=== PATIENT | female | born 1945 | race Caucasian/White ===

== ENCOUNTER 2018-10-21 07:24 | Inpatient (IN) | payer MEDICARE, OTHER ==
[~2018-10-21] VITALS: Ht 162.6 cm; Wt 87.0 kg
[2018-10-21 08:39] LABS: BASOPHILS % (AUTO) 0.1 % (0-1); EOSINOPHILS # (AUTO) 0.2 X10'3 (0-0.9); EOSINOPHILS % (AUTO) 2.2 % (0-6); HEMATOCRIT 40.9 % (35.0-45.0); HEMOGLOBIN 13.6 g/dl (12.0-16.0); LYMPHOCYTES # (AUTO) 0.7 X10'3 (1.1-4.8); LYMPHOCYTES % (AUTO) 6.2 % (21-51); MEAN CORPUSCULAR HEMOGLOBIN 29.8 PG (27.0-31.0); MEAN CORPUSCULAR HGB CONC 33.2 % (33.0-36.5); MEAN CORPUSCULAR VOLUME 89.8 FL (78-98); MEAN PLATELET VOLUME 8.3 FL (7.4-10.4); MONOCYTES # (AUTO) 0.7 X10'3 (0-0.9); MONOCYTES % (AUTO) 6.7 % (2-12); NEUTROPHILS % (AUTO) 84.8 % (42-75); PLATELET COUNT 337 X10'3 (140-440); RED BLOOD COUNT 4.56 X10'6 (4.20-5.60); WHITE BLOOD COUNT 10.7 X10'3 (4.5-11.0)
[2018-10-21 08:51] LABS: INR 1.2 INR; PARTIAL THROMBOPLASTIN TIME 31 SECONDS (22-32); PROTHROMBIN TIME 11.6 SECONDS (9.0-12.0)
[2018-10-21] MEDS ORDERED: adenosine 3mg/ml 2ml vial IV ONE (09:00)
[2018-10-21] MEDS ORDERED: sodium bicarbonate (8.4%) 1 mEq/ml syringe ONE (09:00)
[2018-10-21] MEDS ORDERED: atropine 0.1mg/ml 10ml syringe ONE (09:00)
[2018-10-21] MEDS ORDERED: ePHEDrine 50MG/ML INJ. ONE ×2 (09:00)
[2018-10-21] MEDS ORDERED: 0.9 % SODIUM CHLORIDE 10 ML VIAL ONE ×3 (09:00)
[2018-10-21] MEDS ORDERED: etomidate 2mg/ml inj. ONE (09:00)
[2018-10-21] MEDS ORDERED: calcium chloride 100 MG/1 ML inj IV ONE (09:00)
[2018-10-21 09:09] LABS: ALANINE AMINOTRANSFERASE 11 U/L (12-78); ALBUMIN 1.9 G/DL (3.4-5.0); ALBUMIN/GLOBULIN RATIO 0.4 (1.1-1.5); ALKALINE PHOSPHATASE 199 IU/L (46-116); ANION GAP 12 (8-16); ASPARTATE AMINO TRANSFERASE 22 U/L (10-37); BILIRUBIN,TOTAL 0.3 MG/DL (0.1-1.0); BLOOD UREA NITROGEN 80 MG/DL (7-18); BUN/CREATININE RATIO 34.2 (6.6-38.0); CALCIUM 7.9 MG/DL (8.5-10.1); CHLORIDE 102 MMOL/L (99-107); CREATININE 2.34 MG/DL (0.40-0.90); GLUCOSE 238 MG/DL (70-104); POTASSIUM 4.4 MMOL/L (3.5-5.1); SODIUM 135 MMOL/L (135-145); TOTAL CARBON DIOXIDE 20.8 MMOL/L (24-32); TOTAL PROTEIN 6.3 G/DL (6.4-8.2); eGFR 20 ML/MIN
[2018-10-21] MEDS ORDERED: normal saline 1000ML IV soln IVB ONE (09:20)
[2018-10-21] MEDS ORDERED: PRAV80TA3 PO (09:23)
[2018-10-21] MEDS ORDERED: WARF-55 PO (09:23)
[2018-10-21] MEDS ORDERED: METO25TA6 PO (09:23)
[2018-10-21] MEDS ORDERED: EZET10TA13 PO (09:29)
[2018-10-21] MEDS ORDERED: GLIP5TAB26 PO (09:29)
[2018-10-21] MEDS ORDERED: FURO80TA3 PO (09:29)
[2018-10-21] MEDS ORDERED: AMLO2.5T2 PO (09:29)
[2018-10-21] MEDS ORDERED: COU4T PO (09:29)
[2018-10-21] MEDS ORDERED: MAGN400C PO (09:29)
[2018-10-21] MEDS ORDERED: LANTUS SQ (09:29)
[2018-10-21] MEDS ORDERED: CLOP75TA15 PO (09:30)
[2018-10-21] MEDS ORDERED: morphine 4 MG/ML inj SYRINge IV ONE (09:30)
[2018-10-21] MEDS ORDERED: LISI-600 PO (09:30)
[2018-10-21] MEDS ORDERED: mag hydrox/Alum hydrox/simeth 30ml oral suspension PO PRN (10:25)
[2018-10-21] MEDS ORDERED: magnesium 1gm/100ml D5W IVPB 100 ML IV PRN (10:25)
[2018-10-21] MEDS ORDERED: potassium Cl 40MEQ/NS 500ml 500 ML IV PRN ×2 (10:25)
[2018-10-21] MEDS ORDERED: heparin 10,000 units/1 ML INJ IV ONE (10:25)
[2018-10-21] MEDS ORDERED: potassium Cl 20 mEq SR tablet PO PRN ×2 (10:25)
[2018-10-21] MEDS ORDERED: acetaminophen 325mg tablet PO PRN ×2 (10:25)
[2018-10-21] MEDS ORDERED: morphine 2 MG/ML inj. syringe IV PRN (10:25)
[2018-10-21] MEDS ORDERED: ondansetron/PF 4mg/2ml inj IV PRN (10:25)
[2018-10-21] MEDS ORDERED: magnesium 4gm in 100ml NS 100 ML IV PRN (10:25)
[2018-10-21] MEDS ORDERED: magnesium hydroxide 30ml (MOM) UD suspension PO PRN (10:25)
[2018-10-21] MEDS ORDERED: magnesium Cl slow-release 64mg tablet PO PRN (10:25)
[2018-10-21] MEDS: normal saline 1000ml 1,000 ML IV SCH (11:09)
[2018-10-21] MEDS: heparin 25,000 UNIT/250ml bag 250 ML IV SCH ×2 (13:04→18:00)
[2018-10-21 13:42] LABS: BASOPHILS % (AUTO) 0.1 % (0-1); EOSINOPHILS # (AUTO) 0.3 X10'3 (0-0.9); EOSINOPHILS % (AUTO) 4.1 % (0-6); HEMOGLOBIN 12.5 g/dl (12.0-16.0); LYMPHOCYTES # (AUTO) 0.3 X10'3 (1.1-4.8); LYMPHOCYTES % (AUTO) 4.7 % (21-51); MEAN CORPUSCULAR HEMOGLOBIN 29.5 PG (27.0-31.0); MEAN CORPUSCULAR HGB CONC 32.9 % (33.0-36.5); MEAN CORPUSCULAR VOLUME 89.5 FL (78-98); MEAN PLATELET VOLUME 8.2 FL (7.4-10.4); MONOCYTES # (AUTO) 0.6 X10'3 (0-0.9); MONOCYTES % (AUTO) 7.6 % (2-12); NEUTROPHILS # (AUTO) 6.2 X10'3 (1.8-7.7); NEUTROPHILS % (AUTO) 83.5 % (42-75); PLATELET COUNT 297 X10'3 (140-440); RED BLOOD COUNT 4.24 X10'6 (4.20-5.60); RED CELL DISTRIBUTION WIDTH 13.3 % (11.5-14.5); WHITE BLOOD COUNT 7.4 X10'3 (4.5-11.0)
[2018-10-21 16:32] LABS: HEMOGLOBIN A1C 6.6 % (4.5-6.2)
[2018-10-21 17:06] VITALS: BP 107/41
[2018-10-21] MEDS: heparin 10,000 units/1 ML INJ IV PRN (17:57)
[2018-10-21 19:00] VITALS: BP 103/39
[2018-10-21] MEDS ORDERED: temazepam 15mg capsule PO PRN (21:00)
[2018-10-21] MEDS: metoprolol tartrate 25mg tablet PO SCH (21:15)
[2018-10-21 23:00] VITALS: BP 105/53
[2018-10-22] MEDS: heparin 25,000 UNIT/250ml bag 250 ML IV SCH ×4 (01:58→17:18)
[2018-10-22] MEDS: normal saline 1000ml 1,000 ML IV SCH ×3 (02:27→23:02)
[2018-10-22 03:00] VITALS: BP 109/55
[2018-10-22 06:00] VITALS: BP 138/59
[2018-10-22 06:33] LABS: BASOPHILS % (AUTO) 0.6 % (0-1); EOSINOPHILS # (AUTO) 0.5 X10'3 (0-0.9); HEMATOCRIT 35.2 % (35.0-45.0); HEMOGLOBIN 11.8 g/dl (12.0-16.0); LYMPHOCYTES # (AUTO) 0.6 X10'3 (1.1-4.8); LYMPHOCYTES % (AUTO) 9.3 % (21-51); MEAN CORPUSCULAR HEMOGLOBIN 29.8 PG (27.0-31.0); MEAN CORPUSCULAR HGB CONC 33.4 % (33.0-36.5); MEAN CORPUSCULAR VOLUME 89.2 FL (78-98); MONOCYTES # (AUTO) 0.7 X10'3 (0-0.9); MONOCYTES % (AUTO) 10.7 % (2-12); NEUTROPHILS # (AUTO) 4.9 X10'3 (1.8-7.7); NEUTROPHILS % (AUTO) 72.4 % (42-75); PLATELET COUNT 253 X10'3 (140-440); RED BLOOD COUNT 3.95 X10'6 (4.20-5.60); WHITE BLOOD COUNT 6.8 X10'3 (4.5-11.0)
[2018-10-22 07:50] LABS: ALANINE AMINOTRANSFERASE 13 U/L (12-78); ALBUMIN 1.8 G/DL (3.4-5.0); ALBUMIN/GLOBULIN RATIO 0.5 (1.1-1.5); ALKALINE PHOSPHATASE 154 IU/L (46-116); ANION GAP 9 (8-16); ASPARTATE AMINO TRANSFERASE 18 U/L (10-37); BILIRUBIN,TOTAL 0.2 MG/DL (0.1-1.0); BLOOD UREA NITROGEN 83 MG/DL (7-18); BUN/CREATININE RATIO 38.8 (6.6-38.0); CALCIUM 7.9 MG/DL (8.5-10.1); CHLORIDE 105 MMOL/L (99-107); CHOL/HDL RATIO 3.6 (0.00-4.99); CHOLESTEROL 75 MG/DL (0-200); CREATININE 2.14 MG/DL (0.40-0.90); GLUCOSE 73 MG/DL (70-104); HDL CHOLESTEROL 21 MG/DL (35-60); LDL CHOLESTEROL 28 MG/DL (50-100); MAGNESIUM 2.3 MG/DL (1.5-2.4); PHOSPHORUS 4.2 MG/DL (2.3-4.5); POTASSIUM 4.1 MMOL/L (3.5-5.1); SODIUM 139 MMOL/L (135-145); TOTAL CARBON DIOXIDE 25.2 MMOL/L (24-32); TOTAL PROTEIN 5.7 G/DL (6.4-8.2); TRIGLYCERIDES 158 MG/DL (20-135); eGFR 23 ML/MIN
[2018-10-22] MEDS: K and/or MAG REPLACEMENT MC SCH (08:00)
[2018-10-22] MEDS ORDERED: PRAVASTATIN SODIUM 80 MG PO SCH (08:00)
[2018-10-22] MEDS: aspirin 81mg tab.chew PO SCH (08:08)
[2018-10-22] MEDS: clopidogrel 75mg tablet PO SCH (08:08)
[2018-10-22] MEDS: pravastatin 40mg tablet PO SCH (08:10)
[2018-10-22] MEDS: ezetimibe 10mg tablet PO SCH (08:11)
[2018-10-22] MEDS: metoprolol tartrate 25mg tablet PO SCH ×2 (08:12→20:00)
[2018-10-22] MEDS: morphine 2 MG/ML inj. syringe IV PRN (08:20)
[2018-10-22] MEDS: heparin 10,000 units/1 ML INJ IV PRN (09:39)
[2018-10-22 11:00] VITALS: BP 111/48
[2018-10-22 15:00] VITALS: BP 122/50
[2018-10-22] MEDS ORDERED: docusate sod 100mg capsule PO ONE (15:00)
[2018-10-22 19:00] VITALS: BP 123/35
[2018-10-22] MEDS: docusate sod 100mg capsule PO SCH (20:01)
[2018-10-22] MEDS ORDERED: warfarin 5mg tablet PO SCH (21:00)
[2018-10-22] MEDS ORDERED: warfarin 5mg tablet PO ONE (21:00)
[2018-10-22 23:00] VITALS: BP 113/29
[2018-10-23 02:29] LABS: BASOPHILS % (AUTO) 0.2 % (0-1); EOSINOPHILS # (AUTO) 0.3 X10'3 (0-0.9); EOSINOPHILS % (AUTO) 2.9 % (0-6); HEMATOCRIT 36.4 % (35.0-45.0); HEMOGLOBIN 12.1 g/dl (12.0-16.0); LYMPHOCYTES # (AUTO) 0.4 X10'3 (1.1-4.8); LYMPHOCYTES % (AUTO) 4.4 % (21-51); MEAN CORPUSCULAR HEMOGLOBIN 29.9 PG (27.0-31.0); MEAN CORPUSCULAR HGB CONC 33.3 % (33.0-36.5); MEAN CORPUSCULAR VOLUME 89.8 FL (78-98); MEAN PLATELET VOLUME 8.3 FL (7.4-10.4); MONOCYTES # (AUTO) 0.5 X10'3 (0-0.9); MONOCYTES % (AUTO) 5.3 % (2-12); NEUTROPHILS # (AUTO) 8.6 X10'3 (1.8-7.7); NEUTROPHILS % (AUTO) 87.2 % (42-75); PLATELET COUNT 338 X10'3 (140-440); RED BLOOD COUNT 4.05 X10'6 (4.20-5.60); RED CELL DISTRIBUTION WIDTH 13.5 % (11.5-14.5); WHITE BLOOD COUNT 9.8 X10'3 (4.5-11.0)
[2018-10-23 02:42] LABS: PROTHROMBIN TIME 10.6 SECONDS (9.0-12.0)
[2018-10-23 02:43] LABS: ALANINE AMINOTRANSFERASE 16 U/L (12-78); ALBUMIN 2.1 G/DL (3.4-5.0); ALBUMIN/GLOBULIN RATIO 0.4 (1.1-1.5); ALKALINE PHOSPHATASE 199 IU/L (46-116); ANION GAP 11 (8-16); ASPARTATE AMINO TRANSFERASE 18 U/L (10-37); BILIRUBIN,TOTAL 0.3 MG/DL (0.1-1.0); BLOOD UREA NITROGEN 73 MG/DL (7-18); BUN/CREATININE RATIO 37.1 (6.6-38.0); CALCIUM 8.4 MG/DL (8.5-10.1); CHLORIDE 104 MMOL/L (99-107); CREATININE 1.97 MG/DL (0.40-0.90); GLUCOSE 166 MG/DL (70-104); MAGNESIUM 2.5 MG/DL (1.5-2.4); PHOSPHORUS 3.8 MG/DL (2.3-4.5); POTASSIUM 4.3 MMOL/L (3.5-5.1); SODIUM 137 MMOL/L (135-145); TOTAL CARBON DIOXIDE 22.5 MMOL/L (24-32); TOTAL PROTEIN 6.8 G/DL (6.4-8.2); eGFR 25 ML/MIN
[2018-10-23 03:00] VITALS: BP 113/35
[2018-10-23 06:00] VITALS: BP 112/39
[2018-10-23] MEDS: K and/or MAG REPLACEMENT MC SCH (08:00)
[2018-10-23] MEDS: aspirin 81mg tab.chew PO SCH (08:15)
[2018-10-23] MEDS: ezetimibe 10mg tablet PO SCH (08:15)
[2018-10-23] MEDS: metoprolol tartrate 25mg tablet PO SCH ×2 (08:16→21:32)
[2018-10-23] MEDS: pravastatin 40mg tablet PO SCH (08:17)
[2018-10-23] MEDS: clopidogrel 75mg tablet PO SCH (08:17)
[2018-10-23] MEDS: docusate sod 100mg capsule PO SCH ×2 (08:17→21:32)
[2018-10-23] MEDS: morphine 2 MG/ML inj. syringe IV PRN ×2 (08:18→17:31)
[2018-10-23 11:00] VITALS: BP 122/37
[2018-10-23] MEDS: normal saline 1000ml 1,000 ML IV SCH (13:25)
[2018-10-23] MEDS: heparin 25,000 UNIT/250ml bag 250 ML IV SCH ×2 (13:59→21:24)
[2018-10-23 15:00] VITALS: BP 145/42
[2018-10-23 18:00] VITALS: BP 135/55
[2018-10-23] MEDS ORDERED: warfarin 5mg tablet PO ONE (21:00)
[2018-10-23] MEDS: heparin 10,000 units/1 ML INJ IV PRN (21:23)
[2018-10-23 22:00] VITALS: BP 157/60
[2018-10-24] MEDS: morphine 2 MG/ML inj. syringe IV PRN ×5 (00:20→23:46)
[2018-10-24 02:00] VITALS: BP 143/61
[2018-10-24 05:25] LABS: BASOPHILS # (AUTO) 0.1 X10'3 (0-0.2); BASOPHILS % (AUTO) 1.4 % (0-1); EOSINOPHILS # (AUTO) 0.5 X10'3 (0-0.9); EOSINOPHILS % (AUTO) 6.4 % (0-6); HEMATOCRIT 35.8 % (35.0-45.0); HEMOGLOBIN 11.8 g/dl (12.0-16.0); LYMPHOCYTES # (AUTO) 0.4 X10'3 (1.1-4.8); LYMPHOCYTES % (AUTO) 5.7 % (21-51); MEAN CORPUSCULAR HEMOGLOBIN 29.6 PG (27.0-31.0); MEAN CORPUSCULAR HGB CONC 32.8 % (33.0-36.5); MEAN CORPUSCULAR VOLUME 90.1 FL (78-98); MEAN PLATELET VOLUME 8.5 FL (7.4-10.4); MONOCYTES # (AUTO) 0.5 X10'3 (0-0.9); MONOCYTES % (AUTO) 7.3 % (2-12); NEUTROPHILS # (AUTO) 5.7 X10'3 (1.8-7.7); NEUTROPHILS % (AUTO) 79.2 % (42-75); PLATELET COUNT 283 X10'3 (140-440); RED BLOOD COUNT 3.98 X10'6 (4.20-5.60); RED CELL DISTRIBUTION WIDTH 13.3 % (11.5-14.5); WHITE BLOOD COUNT 7.1 X10'3 (4.5-11.0)
[2018-10-24 05:41] LABS: INR 1.2 INR; PROTHROMBIN TIME 11.9 SECONDS (9.0-12.0)
[2018-10-24 05:54] LABS: ALANINE AMINOTRANSFERASE 15 U/L (12-78); ALBUMIN 1.8 G/DL (3.4-5.0); ALBUMIN/GLOBULIN RATIO 0.5 (1.1-1.5); ALKALINE PHOSPHATASE 144 IU/L (46-116); ANION GAP 11 (8-16); ASPARTATE AMINO TRANSFERASE 14 U/L (10-37); BILIRUBIN,TOTAL 0.3 MG/DL (0.1-1.0); BLOOD UREA NITROGEN 54 MG/DL (7-18); BUN/CREATININE RATIO 34.8 (6.6-38.0); CALCIUM 8.1 MG/DL (8.5-10.1); CHLORIDE 110 MMOL/L (99-107); CREATININE 1.55 MG/DL (0.40-0.90); GLUCOSE 109 MG/DL (70-104); MAGNESIUM 2.4 MG/DL (1.5-2.4); PHOSPHORUS 2.9 MG/DL (2.3-4.5); SODIUM 142 MMOL/L (135-145); TOTAL PROTEIN 5.8 G/DL (6.4-8.2); eGFR 33 ML/MIN
[2018-10-24] MEDS: heparin 25,000 UNIT/250ml bag 250 ML IV SCH ×3 (05:55→16:30)
[2018-10-24 06:00] VITALS: BP 115/55
[2018-10-24] MEDS: ezetimibe 10mg tablet PO SCH (07:37)
[2018-10-24] MEDS: pravastatin 40mg tablet PO SCH (07:37)
[2018-10-24] MEDS: aspirin 81mg tab.chew PO SCH (07:37)
[2018-10-24] MEDS: docusate sod 100mg capsule PO SCH ×2 (07:37→20:25)
[2018-10-24] MEDS: metoprolol tartrate 25mg tablet PO SCH ×2 (07:38→20:25)
[2018-10-24] MEDS: clopidogrel 75mg tablet PO SCH (07:38)
[2018-10-24] MEDS: K and/or MAG REPLACEMENT MC SCH (08:00)
[2018-10-24] MEDS ORDERED: magnesium 2GM in 50ml NS 50 ML IV PRN (08:33)
[2018-10-24 11:00] VITALS: BP 121/48
[2018-10-24 15:00] VITALS: BP 152/61
[2018-10-24] MEDS: normal saline 1000ml 1,000 ML IV SCH (18:43)
[2018-10-24 19:00] VITALS: BP 128/48
[2018-10-24] MEDS ORDERED: warfarin 10mg tablet PO ONE (21:00)
[2018-10-24 23:00] VITALS: BP 137/50
[2018-10-25 03:00] VITALS: BP 124/50
[2018-10-25] MEDS: morphine 2 MG/ML inj. syringe IV PRN ×3 (04:39→20:38)
[2018-10-25 06:00] VITALS: BP 150/46
[2018-10-25 06:43] LABS: BASOPHILS % (AUTO) 0.6 % (0-1); EOSINOPHILS # (AUTO) 0.5 X10'3 (0-0.9); EOSINOPHILS % (AUTO) 7.8 % (0-6); HEMATOCRIT 39.5 % (35.0-45.0); HEMOGLOBIN 13.1 g/dl (12.0-16.0); LYMPHOCYTES # (AUTO) 0.4 X10'3 (1.1-4.8); MEAN CORPUSCULAR HEMOGLOBIN 29.7 PG (27.0-31.0); MEAN CORPUSCULAR VOLUME 89.9 FL (78-98); MEAN PLATELET VOLUME 7.6 FL (7.4-10.4); MONOCYTES # (AUTO) 0.6 X10'3 (0-0.9); NEUTROPHILS # (AUTO) 5.4 X10'3 (1.8-7.7); NEUTROPHILS % (AUTO) 77.6 % (42-75); PLATELET COUNT 278 X10'3 (140-440); RED CELL DISTRIBUTION WIDTH 13.7 % (11.5-14.5)
[2018-10-25 06:48] LABS: INR 1.8 INR; PROTHROMBIN TIME 17.3 SECONDS (9.0-12.0)
[2018-10-25 06:52] LABS: ALANINE AMINOTRANSFERASE 13 U/L (12-78); ALBUMIN/GLOBULIN RATIO 0.5 (1.1-1.5); ALKALINE PHOSPHATASE 147 IU/L (46-116); ANION GAP 14 (8-16); ASPARTATE AMINO TRANSFERASE 15 U/L (10-37); BILIRUBIN,TOTAL 0.2 MG/DL (0.1-1.0); BLOOD UREA NITROGEN 40 MG/DL (7-18); BUN/CREATININE RATIO 32.8 (6.6-38.0); CHLORIDE 110 MMOL/L (99-107); CREATININE 1.22 MG/DL (0.40-0.90); GLUCOSE 112 MG/DL (70-104); MAGNESIUM 2.4 MG/DL (1.5-2.4); PHOSPHORUS 2.7 MG/DL (2.3-4.5); POTASSIUM 4.2 MMOL/L (3.5-5.1); SODIUM 142 MMOL/L (135-145); eGFR 43 ML/MIN
[2018-10-25] MEDS: pravastatin 40mg tablet PO SCH (07:26)
[2018-10-25] MEDS: normal saline 1000ml 1,000 ML IV SCH (07:26)
[2018-10-25] MEDS: aspirin 81mg tab.chew PO SCH (07:26)
[2018-10-25] MEDS: clopidogrel 75mg tablet PO SCH (07:26)
[2018-10-25] MEDS: ezetimibe 10mg tablet PO SCH (07:27)
[2018-10-25] MEDS: metoprolol tartrate 25mg tablet PO SCH ×2 (07:27→20:41)
[2018-10-25] MEDS: docusate sod 100mg capsule PO SCH ×2 (07:27→20:00)
[2018-10-25] MEDS: K and/or MAG REPLACEMENT MC SCH (08:00)
[2018-10-25 11:00] VITALS: BP 133/53
[2018-10-25] MEDS ORDERED: furosemide 40mg/4ml inj IV ONE (11:05)
[2018-10-25] MEDS: NUT.TX.GLUC.INTOLER,LAC-FR,SOY (GLUCERNA) 237 ML PO SCH ×2 (13:00→18:00)
[2018-10-25 15:00] VITALS: BP 150/63
[2018-10-25] MEDS: sodium bicarbonate 650mg tablet PO SCH ×2 (16:49→21:00)
[2018-10-25] MEDS ORDERED: warfarin 5mg tablet PO ONE (21:00)
[2018-10-25 23:00] VITALS: BP 119/54
[2018-10-26 03:00] VITALS: BP 159/80
[2018-10-26 06:46] LABS: BASOPHILS % (AUTO) 0.4 % (0-1); EOSINOPHILS # (AUTO) 0.4 X10'3 (0-0.9); EOSINOPHILS % (AUTO) 6.1 % (0-6); HEMATOCRIT 39.3 % (35.0-45.0); HEMOGLOBIN 12.8 g/dl (12.0-16.0); LYMPHOCYTES # (AUTO) 0.4 X10'3 (1.1-4.8); LYMPHOCYTES % (AUTO) 5.2 % (21-51); MEAN CORPUSCULAR HEMOGLOBIN 29.3 PG (27.0-31.0); MEAN CORPUSCULAR HGB CONC 32.7 % (33.0-36.5); MEAN CORPUSCULAR VOLUME 89.7 FL (78-98); MEAN PLATELET VOLUME 7.7 FL (7.4-10.4); MONOCYTES # (AUTO) 0.4 X10'3 (0-0.9); MONOCYTES % (AUTO) 6.1 % (2-12); NEUTROPHILS # (AUTO) 5.6 X10'3 (1.8-7.7); NEUTROPHILS % (AUTO) 82.2 % (42-75); PLATELET COUNT 296 X10'3 (140-440); RED BLOOD COUNT 4.38 X10'6 (4.20-5.60); RED CELL DISTRIBUTION WIDTH 13.4 % (11.5-14.5); WHITE BLOOD COUNT 6.8 X10'3 (4.5-11.0)
[2018-10-26 07:00] LABS: PROTHROMBIN TIME 45.5 SECONDS (9.0-12.0)
[2018-10-26 07:05] LABS: ALANINE AMINOTRANSFERASE 15 U/L (12-78); ALBUMIN 2.1 G/DL (3.4-5.0); ALBUMIN/GLOBULIN RATIO 0.5 (1.1-1.5); ALKALINE PHOSPHATASE 152 IU/L (46-116); ANION GAP 11 (8-16); ASPARTATE AMINO TRANSFERASE 15 U/L (10-37); BILIRUBIN,TOTAL 0.3 MG/DL (0.1-1.0); BLOOD UREA NITROGEN 31 MG/DL (7-18); BUN/CREATININE RATIO 25.4 (6.6-38.0); CALCIUM 8.5 MG/DL (8.5-10.1); CHLORIDE 109 MMOL/L (99-107); CREATININE 1.22 MG/DL (0.40-0.90); GLUCOSE 133 MG/DL (70-104); MAGNESIUM 2.4 MG/DL (1.5-2.4); PHOSPHORUS 2.6 MG/DL (2.3-4.5); POTASSIUM 4.1 MMOL/L (3.5-5.1); SODIUM 143 MMOL/L (135-145); TOTAL CARBON DIOXIDE 22.8 MMOL/L (24-32); TOTAL PROTEIN 6.4 G/DL (6.4-8.2); eGFR 43 ML/MIN
[2018-10-26 07:07] LABS: INR 4.9 INR
[2018-10-26] MEDS ORDERED: potassium Cl 20 mEq SR tablet PO SCH (08:00)
[2018-10-26] MEDS ORDERED: furosemide 40mg tablet PO ONE (08:00)
[2018-10-26] MEDS: NUT.TX.GLUC.INTOLER,LAC-FR,SOY (GLUCERNA) 237 ML PO SCH (08:12)
[2018-10-26] MEDS: docusate sod 100mg capsule PO SCH (08:12)
[2018-10-26] MEDS: aspirin 81mg tab.chew PO SCH (08:12)
[2018-10-26 08:14] VITALS: BP_SYST 154
[2018-10-26] MEDS: pravastatin 40mg tablet PO SCH (08:14)
[2018-10-26] MEDS: clopidogrel 75mg tablet PO SCH (08:14)
[2018-10-26] MEDS: metoprolol tartrate 25mg tablet PO SCH (08:14)
[2018-10-26] MEDS: sodium bicarbonate 650mg tablet PO SCH (08:15)
[2018-10-26] MEDS: ezetimibe 10mg tablet PO SCH (08:15)
[2018-10-26] MEDS ORDERED: diltiazem 5mg/ml 5ml inj. IV ONE (09:45)
[2018-10-26] MEDS ORDERED: diltiazem-NS 100mg/100ml 100 ML IV SCH (09:45)
[2018-10-26] MEDS ORDERED: albuterol 2.5 MG/3 ML nebule NEB PRN (10:05)
[2018-10-26] MEDS ORDERED: diltiazem-D5W 125mg/125ml 100 ML IV SCH (10:11)
[2018-10-26] MEDS ORDERED: diltiazem-D5W 125mg/125ml 125 ML IV SCH (10:12)
[2018-10-26] MEDS ORDERED: epiNEPHrine inj 5 MG in normal saline 250ml IV soln 245 ML IV ONE (11:00)
[2018-10-26] MEDS ORDERED: VASOPRESSIN 60 UNITS in NS 100ml IV SCH (11:10)
== END 2018-10-26 16:26 | disposition expired ==
LOC: ER 07:26 → PCU 3S 10:22 → CMPBEDREQ 19:44 → PCU 3S 10-26 11:36
PROVIDERS: ADMIT Family Medicine; ATTEND Family Medicine
PROC: 5A12012 Performance of Cardiac Output, Single, Manual (ICD-10-PCS; principal; 2018-10-26)
PROC: 05HM33Z Insertion of Infusion Device into Right Internal Jugular Vein, Percutaneous Approach (ICD-10-PCS; 2018-10-26)
PROC: B543ZZA Ultrasonography of Right Jugular Veins, Guidance (ICD-10-PCS; 2018-10-26)
PROC: 0BH17EZ Insertion of Endotracheal Airway into Trachea, Via Natural or Artificial Opening (ICD-10-PCS; 2018-10-26)
PROC: 5A1935Z Respiratory Ventilation, Less than 24 Consecutive Hours (ICD-10-PCS; 2018-10-26)
DX: I21.4 Non-ST elevation (NSTEMI) myocardial infarction (principal); E43 Unspecified severe protein-calorie malnutrition; C34.90 Malignant neoplasm of unspecified part of unspecified bronchus or lung; I47.2 Ventricular tachycardia; J91.0 Malignant pleural effusion; N17.9 Acute kidney failure, unspecified; I12.9 Hypertensive chronic kidney disease with stage 1 through stage 4 chronic kidney disease, or unspecified chronic kidney disease; E11.22 Type 2 diabetes mellitus with diabetic chronic kidney disease; E11.51 Type 2 diabetes mellitus with diabetic peripheral angiopathy without gangrene; E11.649 Type 2 diabetes mellitus with hypoglycemia without coma; R14.0 Abdominal distension (gaseous); E78.5 Hyperlipidemia, unspecified; I25.10 Atherosclerotic heart disease of native coronary artery without angina pectoris; I46.9 Cardiac arrest, cause unspecified; I48.0 Paroxysmal atrial fibrillation; W19.XXXA Unspecified fall, initial encounter; J44.9 Chronic obstructive pulmonary disease, unspecified; K59.00 Constipation, unspecified; N18.9 Chronic kidney disease, unspecified; Z98.49 Cataract extraction status, unspecified eye; Z95.5 Presence of coronary angioplasty implant and graft; Z99.81 Dependence on supplemental oxygen; Z90.49 Acquired absence of other specified parts of digestive tract; Z88.8 Allergy status to other drugs, medicaments and biological substances; Z88.1 Allergy status to other antibiotic agents; Z79.899 Other long term (current) drug therapy; Z79.01 Long term (current) use of anticoagulants; Z79.02 Long term (current) use of antithrombotics/antiplatelets; Z79.4 Long term (current) use of insulin; Z86.73 Personal history of transient ischemic attack (TIA), and cerebral infarction without residual deficits; Z87.891 Personal history of nicotine dependence; Z68.32 Body mass index [BMI] 32.0-32.9, adult; Y93.89 Activity, other specified; Y92.89 Other specified places as the place of occurrence of the external cause; Y99.8 Other external cause status
CPT/HCPCS: 36415; 70450; 71045; 71250; 74176; 76937; 80053; 80061; 82948; 83036; 83735; 83880; 84100; 84484; 85025; 85610; 85730; 87070; 92950; 93005; 93308; 94760; 96361; 96374; 97110; 97162; 97530; 99285; G0378; J0153; J0171; J0461; J1644; J1940; J2270; J3490; J7030